=== PATIENT | male | born 1960 | race Caucasian/White ===

== ENCOUNTER 2024-08-15 07:33 | Inpatient (IN) ==
--- NOTE | 2024-07-13 09:45 | PAT Medication Instructions ---
Medication Instructions Date of Service July 13, 2024 Home Medications aspirin 81 mg tablet,delayed release 81 mg PO QAM carvedilol 25 mg tablet 25 mg PO BID celecoxib 200 mg capsule 200 mg PO DAILY PRN cyclobenzaprine 10 mg tablet 10 mg PO BID PRN diclofenac sodium 1 % topical gel 2 g topical DAILY PRN duloxetine 60 mg capsule,delayed release 60 mg PO QAM hydrocodone 5 mg-acetaminophen 325 mg tablet 1 tab PO TID PRN insulin aspart U-100 100 unit/mL (3 mL) subcutaneous pen (Novolog FlexPen U-100 Insulin aspart) 12 unit subcut TID insulin glargine 100 unit/mL (3 mL) subcutaneous pen (Lantus Solostar U-100 Insulin) 40 unit subcut QAM isosorbide mononitrate 60 mg tablet,extended release 24 hr 60 mg PO QAM lidocaine 5 % topical patch 1 patch topical QAM lisinopril 40 mg tablet 40 mg PO QAM methyl salicylate 10 % topical cream 1 applic topical DAILY PRN rosuvastatin 40 mg tablet 20 mg PO HS semaglutide 2 mg/dose (8 mg/3 mL) subcutaneous pen injector (Ozempic) 2 mg subcut WK sennosides 8.6 mg tablet (Senokot) 8.6 mg PO HS STOP 7 days before surgery semaglutide 2 mg/dose (8 mg/3 mL) subcutaneous pen injector (Ozempic) 2 mg subcut WK ASK your surgeon for instructions celecoxib 200 mg capsule 200 mg PO DAILY PRN ASK your prescriber and surgeon aspirin 81 mg tablet,delayed release 81 mg PO QAM lidocaine 5 % topical patch 1 patch topical QAM STOP taking 24 hours before surgery diclofenac sodium 1 % topical gel 2 g topical DAILY PRN methyl salicylate 10 % topical cream 1 applic topical DAILY PRN DO NOT take the morning of surgery lisinopril 40 mg tablet 40 mg PO QAM insulin aspart U-100 100 unit/mL (3 mL) subcutaneous pen (Novolog FlexPen U-100 Insulin aspart) 12 unit subcut TID Take morning of surgery With a small sip of water, OTHERWISE NOTHING TO EAT OR DRINK AFTER MIDNIGHT: carvedilol 25 mg tablet 25 mg PO BID cyclobenzaprine 10 mg tablet 10 mg PO BID PRN(if needed) duloxetine 60 mg capsule,delayed release 60 mg PO QAM hydrocodone 5 mg-acetaminophen 325 mg tablet 1 tab PO TID PRN(if needed) isosorbide mononitrate 60 mg tablet,extended release 24 hr 60 mg PO QAM Take evening before surgery carvedilol 25 mg tablet 25 mg PO BID cyclobenzaprine 10 mg tablet 10 mg PO BID PRN(if needed) hydrocodone 5 mg-acetaminophen 325 mg tablet 1 tab PO TID PRN(if needed) rosuvastatin 40 mg tablet 20 mg PO HS sennosides 8.6 mg tablet (Senokot) 8.6 mg PO HS insulin aspart U-100 100 unit/mL (3 mL) subcutaneous pen (Novolog FlexPen U-100 Insulin aspart) 12 unit subcut TID Insulin Dependent Diabetic Patients * Test your blood sugar the morning of surgery * If Blood Sugar is GREATER THAN 150, take HALF of your regular dose of: insulin glargine 100 unit/mL (3 mL) subcutaneous pen (Lantus Solostar U-100 Insulin). * If Blood Sugar is LESS THAN 150, DO NOT TAKE ANY: insulin glargine 100 unit/mL (3 mL) subcutaneous pen (Lantus Solostar U-100 Insulin). Other Notes If you have any questions please call us at [phone] or [phone] or [phone] or [phone]
--- NOTE | 2024-07-18 11:39 | Anesthesiology Consultation ---
Date of Service July 18, 2024 Assessment & Plan (1) Encounter for pre-operative examination: - Check BSG DOS - Infectious disease screening: Per assessment on 07/18/24- No known recent infectious disease contacts or current infectious disease symptoms. - Semaglutide instructions: Patient informed by PAT to stop 7 days prior to surgery- voiced understanding. DOS 08/15/24. Advised last dose to be 08/08/24. - PCP visit (06/13/24): "..feels sugars have been out of control recently due to pain and stress.. Pre-op: Since patient's last LHC in 09/2022, patient has great exercise tolerance of > 4 METS.. Per-operative Risk score is 0.3% using ASA III.. patient is cleared for surgery from internal medicine standpoint. I do not htink he needs any additional testing prior to surgery." - Cardiology note (07/01/24): "Low to moderate risk.. Do not recommend aspirin interruption due to PMH of in-stent restenosis. If interruption is absolutely necessary recommend holding for shortest time possible." - Uncontrolled diabetes: Preop labs performed 07/18/24 note elevated hgba1c at 10.0%. Email sent to surgeon office to make them aware- awaiting response. Chart Review Chart Review: Patient seen in Pre Admission Testing Teaching & Discussion Pre-Anesthesia Teaching/Discussion Notes: Instructed NPO after midnight before surgery,except medications with 15 cc of water. Medication instructions provided according to the PAT guidelines. History Surgery Operation Date: 08/15/24 10:35 Proposed Procedures p L3-L4, L4-L5 Decompression and Fusion with Spinal Cord Monitoring - Dylon Higuera, Height/Weight Height: 5 ft 8 in Weight: 106 kg Allergies Allergy/AdvReac Type Severity Reaction Status Date / Time amlodipine Allergy Severe Facial Verified 07/04/24 10:47 Swelling niacin AdvReac Severe Redness, Verified 07/04/24 10:47 Flushing pregabalin AdvReac Severe Nightmares Verified 07/04/24 10:47 metformin AdvReac Intermediate Diarrhea Verified 07/04/24 10:47 [id number] Reductase AdvReac Intermediate Muscle Pain Verified 07/04/24 10:47 Inhibitor Medications Home Medications Medication Instructions Recorded Confirmed Last Taken aspirin 81 mg tablet,delayed 81 mg PO QAM 07/04/24 07/04/24 Unknown release carvedilol 25 mg tablet 25 mg PO BID 07/04/24 07/04/24 Unknown celecoxib 200 mg capsule 200 mg PO DAILY PRN Pain 07/04/24 07/04/24 Unknown cyclobenzaprine 10 mg tablet 10 mg PO BID PRN Muscle Pain 07/04/24 07/04/24 Unknown diclofenac sodium 1 % topical gel 2 g topical DAILY PRN Muscle Pain 07/04/24 07/04/24 Unknown duloxetine 60 mg capsule,delayed 60 mg PO QAM Pain 07/04/24 07/04/24 Unknown release hydrocodone 5 mg-acetaminophen 325 1 tab PO TID PRN Pain 07/04/24 07/04/24 Unknown mg tablet insulin aspart U-100 100 unit/mL 12 unit subcut TID 07/04/24 07/04/24 Unknown (3 mL) subcutaneous pen (Novolog FlexPen U-100 Insulin aspart) insulin glargine 100 unit/mL (3 40 unit subcut QAM 07/04/24 07/04/24 Unknown mL) subcutaneous pen (Lantus Solostar U-100 Insulin) isosorbide mononitrate 60 mg 60 mg PO QAM 07/04/24 07/04/24 Unknown tablet,extended release 24 hr lidocaine 5 % topical patch 1 patch topical QAM 07/04/24 07/04/24 Unknown lisinopril 40 mg tablet 40 mg PO QAM 07/04/24 07/04/24 Unknown methyl salicylate 10 % topical 1 applic topical DAILY PRN Pain 07/04/24 07/04/24 Unknown cream rosuvastatin 40 mg tablet 20 mg PO HS 07/04/24 07/04/24 Unknown semaglutide 2 mg/dose (8 mg/3 mL) 2 mg subcut WK 07/04/24 07/04/24 07/04/24 subcutaneous pen injector (Ozempic) sennosides 8.6 mg tablet (Senokot) 8.6 mg PO HS 07/04/24 07/04/24 Unknown Past Medical History Medical History CAD (coronary artery disease) 2009 + 2018 + 08/2022 > total of 10 stents placed Follows [facility] Cardiology Diabetes mellitus, type 2 IDDM Heartburn Hx of myocardial infarction 2018 > total of 10 stents placed Follows [facility] Cardiology Hypertension Lumbar radiculopathy Sleep apnea CPAP (compliant) Exercise / Class Metabolic Activity II 4-5 Yardwork/Stairs/Walk up hill (one FS: No CP, no SOB) Past Surgical History Surgical History History of arthroscopy of right shoulder (10/2023) rotator cuff repair Hx of cardiac catheterization 2009 + 2018 + 08/2022> total of 10 stents placed Hx of colonoscopy Past Anesthesia History No Hx of Anesthesia Complications and No Family Hx of Anesthesia Complications History of PONV No Hx of PONV and No Hx of Motion Sickness Social History Smoking Status: Never smoker Do You Dip or Chew Tobacco: No Hx Alcohol Use: Yes Alcohol type: beer alcohol intake frequency: a few times a month Hx Substance Use: No substance use type: does not use Review of Systems Patient denies chest pain, shortness of breath, dyspnea on exertion, fever, chills, cough, wheezing. Physical Exam Vital Signs BP 129/83 P 60 TEMP 98.0 SP02 95%RA RESP 16 Physical Full cervical extension range of motion. Full TMJ range of motion. TMD > 3.5 finger breaths Mallampati Score II Dentition: lower partial Lungs: clear throughout to auscultation Cardiac: regular rate and rhythm, no murmurs noted Spine: normal Carotid arteries: negative bruit Extremities: no LE edema Short leonardo- patient states he will shave/trim prior to surgery Lab Results Anesthesia Preop Results Results Anesthesia Widget: WBC 10.13 K/ul (4.8-10.8) 07/18/24 Hgb 14.3 g/dl (14.0-18.0) 07/18/24 Hct 42.9 % (42.0-52.0) 07/18/24 Plt 246 K/uL (130-400) 07/18/24 Na 136 mmol/L (136-145) 07/18/24 K 4.6 mmol/L (3.5-5.1) 07/18/24 Cl 100 mmol/L (98-107) 07/18/24 CO2 31 mmol/L (21-32) 07/18/24 BUN 13 mg/dl (6-23) 07/18/24 Creat 0.84 mg/dl (0.6-1.4) 07/18/24 Glucose Level 253 mg/dl (70-99(Fasting)) H 07/18/24 PT 10.7 Seconds (9.0-12.0) 07/18/24 PTT 27 Seconds (21-31) 07/18/24 INR 1.0 (0.9-1.1) 07/18/24 HA1c 10.0 % (4.5-5.6) H 07/18/24 Urine Color Yellow 07/18/24 Urine Appearance Clear (Clear) 07/18/24 Urine pH 5.5 (4.5-7.5) 07/18/24 Urine Specific [place] 1.025 (1.000-1.030) 07/18/24 Urine Protein Negative (Negative) 07/18/24 Urine Glucose (UA) 2+ (Negative) H 07/18/24 Urine Ketones Trace (Negative) H 07/18/24 Urine Blood Negative (Negative) 07/18/24 Urine Nitrite Negative (Negative) 07/18/24 Urine Bilirubin Negative (Negative) 07/18/24 Urine Urobilinogen Negative (Negative) 07/18/24 Urine Leukocyte Esterase Negative (Negative) 07/18/24 Blood Type O Negative 07/18/24 Antibody Screen NEGATIVE 07/18/24 Testing Electrocardiogram Date: 07/18/24 NSR at 67bpm. RSR' or QR in V1 suggests RVCD. Chest X-Ray Date: 07/18/24 FINDINGS: Heart size and pulmonary vasculature are normal. No effusion or consolidation. IMPRESSION: No acute findings Echocardiogram Date: 03/18/24 EF 55 to 60%. Wall motion normal. Mild concentric LVH. Trivial MR/TR/FL. Stress Test Date: 08/20/22 Moderate lateral wall myocardial ischemia. LVEF 50%. Subsequent cardiac cath performed 09/09/2022. Cardiac Catheterization Date: 09/09/22 Multivessel CAD. Obstructive disease of the LAD status post PCI and stenting with overlapping JULIUS. Obstructive disease of the OM1 status post PCI with JULIUS. Normal left-sided filling pressure. No aortic stenosis. Residual moderate to severe diseasestent restenosis of the RCA.
[~2024-08-15 07:33] MED LIST: DEXAMETHASONE SOD INJ 4 MG/ML VIAL ONE; GLYCOPYRROLATE 0.2 MG/ML VIAL ONE; LIDOCAINE 2% 2 ML VIAL/AMP(20MG/ML) INFIL ONE; MIDAZOLAM HCL 1 MG/ML 2ML VIAL ONE; ONDANSETRON INJ 2 MG/ML 2 ML VIAL ONE; PROPOFOL IV EMULSION 10 MG/ML 20 ML VIAL IV ONE; ROCURONIUM BROMIDE 10 MG/ML 5 ML VIAL IV ONE; SUGAMMADEX SODIUM 200 MG/2 ML VIAL IV ONE; fentaNYL citrate PF 100 MCG/2 ML VIAL ONE
[2024-08-15] MEDS: LR 15ML/HR IV SCH (08:40)
[2024-08-15] MEDS: LR 60ML/HR IV SCH (08:45)
[2024-08-15] MEDS: ACETAMINOPHEN 500 MG TAB PO SCH (08:45)
[2024-08-15] MEDS: GABAPENTIN 300 MG CAP PO SCH (08:45)
[2024-08-15] MEDS: CeleBREX 200 MG CAP PO SCH (08:46)
--- NOTE | 2024-08-15 08:53 | History & Physical Bridge Note ---
Date of Service August 15, 2024 History & Physical Bridge Note I have examined the patient, reviewed the History & Physical and in the interval since the performance of the History & Physical I have noted the following changes of clinical significance: no changes noted
--- NOTE | 2024-08-15 08:54 | History & Physical Report ---
Date of Service August 15, 2024 Assessment & Plan (1) Two-level lumbosacral spondylosis with radiculopathy: Plan: Decompression and fusion L3-L4 L4-L5 History of Present Illness Chief Complaint: Back and leg pain Primary Care Provider: [facility] This is a 64-year-old male who presents chronic persistent back and leg pain Course of nonoperative care is here for surgical invention. Allergies Allergy/AdvReac Type Severity Reaction Status Date / Time amlodipine Allergy Severe Facial Verified 08/15/24 08:14 Swelling niacin AdvReac Severe Redness, Verified 08/15/24 08:14 Flushing pregabalin AdvReac Severe Nightmares Verified 08/15/24 08:14 metformin AdvReac Intermediate Diarrhea Verified 08/15/24 08:14 [id number]-DmV Reductase AdvReac Intermediate Muscle Pain Verified 08/15/24 08:14 Inhibitor Home Medications Medication Instructions Recorded Confirmed Type aspirin 81 mg tablet,delayed 81 mg PO QAM 07/04/24 08/15/24 History release carvedilol 25 mg tablet 25 mg PO BID 07/04/24 08/15/24 History celecoxib 200 mg capsule 200 mg PO DAILY PRN Pain 07/04/24 08/15/24 History cyclobenzaprine 10 mg tablet 10 mg PO BID PRN Muscle Pain 07/04/24 08/15/24 History diclofenac sodium 1 % topical gel 2 g topical DAILY PRN Muscle Pain 07/04/24 08/15/24 History duloxetine 60 mg capsule,delayed 60 mg PO QAM Pain 07/04/24 08/15/24 History release (Cymbalta) hydrocodone 5 mg-acetaminophen 325 1 tab PO TID PRN Pain 07/04/24 08/15/24 History mg tablet insulin aspart U-100 100 unit/mL 12 unit subcut TID 07/04/24 08/15/24 History (3 mL) subcutaneous pen (Novolog FlexPen U-100 Insulin aspart) insulin glargine 100 unit/mL (3 40 unit subcut QAM 07/04/24 08/15/24 History mL) subcutaneous pen (Lantus Solostar U-100 Insulin) isosorbide mononitrate 60 mg 60 mg PO QAM 07/04/24 08/15/24 History tablet,extended release 24 hr lidocaine 5 % topical patch 1 patch topical QAM 07/04/24 08/15/24 History lisinopril 40 mg tablet 40 mg PO QAM 07/04/24 08/15/24 History methyl salicylate 10 % topical 1 applic topical DAILY PRN Pain 07/04/24 08/15/24 History cream (Methylten) rosuvastatin 40 mg tablet 20 mg PO HS 07/04/24 08/15/24 History semaglutide 2 mg/dose (8 mg/3 mL) 2 mg subcut WK 07/04/24 08/15/24 History subcutaneous pen injector (Ozempic) sennosides 8.6 mg tablet (Senokot) 8.6 mg PO HS 07/04/24 08/15/24 History Past Med/Surg History Problem List (Updated 08/15/24 @ 08:54 by Dylon Higuera, DO) Two-level lumbosacral spondylosis with radiculopathy Encounter for pre-operative examination Medical History CAD (coronary artery disease) 2009 + 08/2022 > total of 10 stents placed Follows [facility] Cardiology Diabetes mellitus, type 2 IDDM Heartburn Hx of myocardial infarction 2018 > total of 10 stents placed Follows [facility] Hypertension Lumbar radiculopathy Sleep apnea CPAP (compliant) Surgical History History of arthroscopy of right shoulder (10/2023) rotator cuff repair Hx of cardiac catheterization 2009 + 08/2022> total of 10 stents placed Hx of colonoscopy Social History Smoking Status: Never smoker Second Hand Exposure: No; Do You Dip or Chew Tobacco: No; Tobacco Cessation Education Requested by Patient: No Hx Alcohol Use: Yes Alcohol type: beer Hx Substance Use: No Preferred Language: Tajik Communication Ability: Effective Denture Contour Wire Specialist Required: No Beliefs That Will Affect Care: None Current Living Situation: Alone Other Information That Helps Us Care for You: No Feels Safe at Home: Yes Safety Concerns: Feels Safe At This Time Assistive Devices: CPAP, Glasses and Other Assistive Devices Comment: Lower Partial Physical Exam Physical Exam: Patient is alert and oriented Heart regular rhythm Lungs clear Results & Data Results & Data Vital Signs (Past 12 Hours) Vital Signs Temp Pulse Resp BP Pulse Ox O2 Del Method 08/15/24 08:22 36.6 C 71 20 155/91 H 96 Room Air
[2024-08-15] MEDS ORDERED: LANTUS PER UNIT CHARGE SQ STA (08:56)
[2024-08-15] MEDS ORDERED: ePHEDrine sulfate 50 MG/ML AMP IV PRN (09:01)
[2024-08-15] MEDS ORDERED: PROMETHAZINE HCL 6.25 MG in SODIUM CHLORIDE 0.9% 50 ML IV PRN (09:01)
[2024-08-15] MEDS ORDERED: ATROPINE SULFATE 0.1 MG/ML 10ML SYR IV PRN (09:01)
[2024-08-15] MEDS: LANTUS PER UNIT CHARGE SQ STA (09:21)
[2024-08-15] MEDS: ceFAZolin 2000MG 2,000 MG/15 ML SYR IV SCH ×2 (09:26→20:56)
[2024-08-15] MEDS: BUPIVACAINE/EPINEPHRINE 0.25% 1:200,000 30 ML VIAL ONE (09:53)
[2024-08-15] MEDS ORDERED: fentaNYL citrate PF 100 MCG/2 ML VIAL ONE ×2 (10:13→11:32)
[2024-08-15] MEDS: ceFAZolin 330 MG/ML 1 GM VIAL ONE (11:29)
[2024-08-15] MEDS: FLOSEAL HEMOSTATIC MATRIX 10ML TOP SCH (11:31)
--- NOTE | 2024-08-15 11:38 | Fluoroscopy Report ---
FL lumbar spine 2-3V CLINICAL HISTORY: L3-L5 DECOMPRESSION AND FUSION WITH INTERBODY COMPARISON STUDY: None FLUOROSCOPY TIME: 20 seconds FLUOROSCOPY IMAGES: 2 EXPOSURE DOSE: 18.2 mGy FINDINGS: Fluoroscopy was provided for lumbar metallic fusion. IMPRESSION: Intraoperative fluoroscopy. ACT 112: Negative or not required by law. Electronically signed by: Dustin Paez M.D. 08/15/2024 11:37 AM
--- NOTE | 2024-08-15 11:42 | Operative Report ---
Post Operative Report Pre & Post Diagnosis Operation Date: 08/15/24 09:15 Pre-Op Diagnosis: #1 two-level lumbosacral spondylosis with radiculopathy #2 lumbar spondylolisthesis with radiculopathy #3 lumbar spinal stenosis Post-Op Diagnosis: Same I identified the patient and participated in the time-out.: Yes Procedure Operation Date: 08/15/24 09:15 Actual Procedures #1 lumbar decompression bilaterally facetectomies and foraminotomies L2-L3, L3- L4 L4-5 per #2 posterior spinal fusion L3-L5. #3 placed posterior instrumentation using Page rods and screws L3-L5. #4 interbody fusion L3-L4 L4-5. #5 placement Spira 14 x 26 mm at L3-L4 and 15 x 26 mm at L4-5. #6 placement locally harvested morselized autograft in the posterior gutters per #7 placement infuse collagen sponge combined with Koros in the posterior lateral gutters and os design interbody space. #8 application of versa wrap over the exposed dura. Surgeon Dylon Higuera, DO Production Shift Supervisor Karis Banks Estimated Blood Loss 500 Findings See Below Patient is 5 foot 8 weighing over 106 kg with a BMI in excess of 35. The patient's body was did contribute to significant technical difficulty with positioning exposure and the procedure itself. This added at least 50% increased operative time. Specimens None Indications This is a 64-year-old male presents publish diagnosis of failing course of nonoperative care is here for surgical invention. Description of Procedure Patient was met with identified informed consent obtained. Patient was then taken to the operative suite underwent intubation placed in a prone position on the Juan Jose table atop the Santino frame. All bony prominences well-padded eyes inspected to ensure no external pressure placed upon them. This point the lumbar spine was prepped and draped in normal sterile fashion. Sharp dissection with the assistance of Bovie Bovie cautery was performed down to and exposing the lamina and transverse processes of L3 L4-5 bilaterally. For caudal assessment fashion complete laminectomy of L3-4 was performed including bilat eral medial facetectomies and foraminotomies addressing severe subarticular and foraminal stenosis. This followed by complete laminectomy of L3 with complete medial facetectomies and foraminotomies addressing severe spinal stenosis and lastly partial laminectomy of L2 with bilateral medial facetectomies to address all subarticular stenosis. Pedicle screws were then placed in L3-L4-L5 bilaterally with assistance of fluoroscopy in the process ra contoured and placed. By way of transforaminal approach and right discectomy of L4-L5 was performed endplates guided to subcortical mean bone and a 15 x 26 mm Spira cage filled with os design bone graft tapped in position. Then proceeded to the left transforaminal region at L4-5. Again discectomy performed. Endplates guided to subcortical mean bone and a second 15 x 26 mm spiral cage filled with os design bone graft tapped in position. Then proceeded L3-L4 by way of transfer approach on the left discectomy was performed. Endplates guided to subcortical bleeding bone and a 14 x 26 mm spiral cage filled with os designed tapped into position. Then proceeded to the right transforaminal region at L3-L4. Again discectomy performed. Endplates guided to subcortical main bone and a second 14 x 26 mm Spira cage filled with os design tapped in position. The rods were then compressed locked in a final position bilaterally. The transverse processes of L3 L4-5 burred to subcortical bleeding bone. Infuse collagen sponge, with Koros and local autograft placed in the posterior gutters. Versa wrap placed with exposed dura. 15 round SHWETA drain inserted. The incision was then closed with 1 Vicryl the fascia 2-0 Vicryl subcutaneously and 4 Monocryl for final skin closure. Steri-Strips and sterile dressing placed. Patient waken taken PACU stable condition. Please note spinal cord monitoring was utilized at the procedure no changes noted. Karis Banks was present at the entire procedure and all the patient positioning complex portion of the surgery and final skin closure. I attest to the content of the Intraoperative Record and any orders documented therein. Any exceptions are noted below.
[2024-08-15] MEDS: HYDROmorphone INJ 2 MG/ML SYR/VIAL IV PRN (12:53)
[2024-08-15] MEDS ORDERED: hydrOXYzine HCl 25 MG TAB PO PRN (13:14)
[2024-08-15] MEDS ORDERED: traMADol HCL 50 MG TABLET PO PRN (13:14)
[2024-08-15] MEDS ORDERED: diphenhydrAMINE Capsule 25 MG CAP PO PRN (13:14)
[2024-08-15] MEDS ORDERED: METOCLOPRAMIDE HCL INJ 5 MG/ML 2 ML VIAL IV PRN (13:14)
[2024-08-15] MEDS ORDERED: PROMETHAZINE 12.5 MG/50.5 ML BAG IV PRN (13:14)
[2024-08-15] MEDS ORDERED: PHARMACY GLYCEMIC MGMT CONSULT PRN (13:14)
[2024-08-15] MEDS ORDERED: DO NOT ADMINISTER PNEUMOCOCCAL VACCINE PRN (13:14)
[2024-08-15] MEDS ORDERED: FAMOTIDINE 20 MG TAB PO PRN (13:14)
[2024-08-15] MEDS ORDERED: ALUMINUM/MAGNESIUM SUSP 30 ML UDC PO PRN (13:14)
[2024-08-15] MEDS ORDERED: MAGNESIUM HYDROXIDE SUSP 30 ML UDC PO PRN (13:14)
[2024-08-15] MEDS ORDERED: HYDROmorphone INJ 1 MG/ML SYRINGE IV PRN (13:14)
[2024-08-15] MEDS ORDERED: bisacodyL 10 MG SUPP PR PRN (13:14)
[2024-08-15] MEDS ORDERED: DO NOT ADMINISTER FLU VACCINE PRN (13:14)
[2024-08-15] MEDS ORDERED: SOD PHOSPHATE/SOD BIPHOSPHATE ENEMA 132 ML BTL PR PRN (13:14)
[2024-08-15] MEDS ORDERED: ACETAMINOPHEN 1,000 MG/100 ML VIAL IV PRN (13:14)
[2024-08-15] MEDS ORDERED: LORazepam 0.5 MG TAB PO PRN (13:14)
[2024-08-15] MEDS ORDERED: ONDANSETRON 4 MG OD TAB PO PRN (13:14)
[2024-08-15] MEDS ORDERED: NALOXONE HCL 0.4 MG/1 ML VIAL/CARP IV PRN (13:14)
[2024-08-15] MEDS ORDERED: ACETAMINOPHEN 500 MG TAB PO PRN (13:14)
[2024-08-15] MEDS ORDERED: LORazepam 2 MG/1 ML VIAL IV PRN (13:14)
[2024-08-15] MEDS ORDERED: ONDANSETRON INJ 2 MG/ML 2 ML VIAL IV PRN (13:14)
[2024-08-15] MEDS ORDERED: DEXTROSE 50% 50 ML SYRINGE IV PRN (14:15)
[2024-08-15] MEDS ORDERED: CARBOHYDRATES FOR HYPOGLYCEMIA PO PRN (14:15)
[2024-08-15] MEDS ORDERED: GLUCOSE 40% GEL 15 GM TUBE PO PRN (14:15)
[2024-08-15] MEDS ORDERED: GLUCAGON FOR INJ 1 MG VIAL SQ PRN (14:15)
[2024-08-15] MEDS ORDERED: GLUCOSE 10 TAB/TUBE PO PRN (14:15)
[2024-08-15] MEDS: oxyCODONE HCL IR 5 MG TAB (IMMEDIATE RELEASE) PO PRN (14:15)
--- NOTE | 2024-08-15 14:20 | Pharmacy Report ---
Pharmacy Glycemic Short Note 2 - Date of Service August 15, 2024 - Glycemic Short BSG Results (Last 24 hours): 08/15/24 08/15/24 08/15/24 08:05 08:06 08:50 POC Glucose 276 H 215 H 210 H 08/15/24 08/15/24 11:56 13:53 POC Glucose 231 H 289 H OUTPATIENT ANTIDIABETIC REGIMEN: * Lantus 40 units qam * Ozempic 2mg weekly (last dose was on 08/08/24) * NovoLog 12 units TID ASSESSMENT: A 64-years old male with DM type 2 is admitted after a lumbosacral spondylosis. patient has received iv dexamethasone 8 mg preop and now he is on ongoing iv dexamethasone 6mg daily. post op day zero. PLAN FOR INPATIENT GLYCEMIC CONTROL: * Hold outpatient oral diabetes medications * Basal insulin * Lantus 25 units SQ one time dose, and 10 units of Lantus was given to the patient preop. * Bolus insulin * NovoLog per scale ACHS or Q6hrs while NPO * Goal Range: Low 110 mg/dL - High 140 mg/dL * Correction Factor: 20 mg/dL/unit * Nutritional / Prandial insulin per carb ratio of 1 unit per 5 grams CHO consumed
--- NOTE | 2024-08-15 14:51 | Hospitalist Consultation ---
<Statement entered by Josh Grande, - 08/15/24 17:16> I have seen and examined the patient and have discussed the case with the advance practice provider. I have reviewed the advanced practitioner's documentation, and I agree with, and take responsibility for that plan of care. Patient tolerated his liquid lunch, reports that his pain is really well- controlled at this time. Eager to get up and moving. Reviewed plan of care as outlined below I spent a total of 10 minutes coordinating, documenting, and providing care for this patient excluding time spent by another provider/QHP. Date of Consultation August 15, 2024 Assessment & Plan (1) Two-level lumbosacral spondylosis with radiculopathy: This is a 64 y/o male with CAD s/p stent x 2 with repeat procedure in 2022 for in-stent stenosis, prior [place], JHONY on CPAP, DM2 with retinopathy, HTN, dyslipidemia, and other history as outlined below who underwent L3-L5 decompression and fusion today by Dr. Higuera and for whom we have been consulted to assist with post-operative medical management. Currently, patient is stable and doing well post-operatively. EBL = 500 ml. Outpatient records from the [place] were reviewed to determine pt's medical history and pre-operative risk assessment. - Pain control, activity, DVT prophylaxis per primary team - CBC, BMP in the AM - monitor for post-op blood loss anemia - Encourage incentive spirometry, activity once okay with primary team (2) Sleep apnea: Chronic, stable - pt brought CPAP from home Order placed for pt to use own CPAP machine at (3) Diabetes mellitus, type 2: Chronic, stable Glycemic pharmacy consult noted and appreciated Continue to monitor (4) CAD (coronary artery disease): Chronic, stable without anginal symptoms at present Continue home medications (5) Hypertension: Chronic, stable Continue home medications Continue to monitor closely post-op Plan Pt seen and reviewed with collaborating physician, Dr. Grande. Plan of care discussed and as outlined above. Thank you for this consultation. We will continue to follow this patient with you. [facility] via [facility]. Please don't hesitate to reach out with questions. Yeni Barrera PA-C History of Present Illness Reason for Consultation: Post-operative medical management Requesting Physician: Dr. Dylon Higuera Attending Physician: Dylon Higuera, DO History of Present Illness This is a 64 y/o male with CAD s/p stent x 2 with repeat procedure in 2022 for in-stent stenosis, prior [place], JHONY on CPAP, DM2 with retinopathy, HTN, dyslipidemia, and other history as outlined below who underwent L3-L5 decompression and fusion today by Dr. Higuera and for whom we have been consulted to assist with post-operative medical management. Pt is seen post-operatively on the floor and reports that he is overall feeling well. He has some post- operative pain but reports it is dull and localized to the operative site, which is in contrast to his prior pain which was sharp and radiated to LE. He is tolerating clear liquids without nausea or vomiting. He denies chest pain, dyspnea, palpitations, dizziness, GTZ. He does uses CPAP at night sleep apnea, which he has brought with him to the hospital. He reports his blood sugars have been stable at home, typically under 200. Allergies Allergy/AdvReac Type Severity Reaction Status Date / Time amlodipine Allergy Severe Facial Verified 08/15/24 08:14 Swelling niacin AdvReac Severe Redness, Verified 08/15/24 08:14 Flushing pregabalin AdvReac Severe Nightmares Verified 08/15/24 08:14 metformin AdvReac Intermediate Diarrhea Verified 08/15/24 08:14 Ut[place]je-JSJ-EnM Reductase AdvReac Intermediate Muscle Pain Verified 08/15/24 08:14 Inhibitor Home Medications Medication Instructions Recorded Confirmed Type aspirin 81 mg tablet,delayed 81 mg PO QAM 07/04/24 08/15/24 History release carvedilol 25 mg tablet 25 mg PO BID 07/04/24 08/15/24 History celecoxib 200 mg capsule 200 mg PO DAILY PRN Pain 07/04/24 08/15/24 History cyclobenzaprine 10 mg tablet 10 mg PO BID PRN Muscle Pain 07/04/24 08/15/24 History diclofenac sodium 1 % topical gel 2 g topical DAILY PRN Muscle Pain 07/04/24 08/15/24 History duloxetine 60 mg capsule,delayed 60 mg PO QAM Pain 07/04/24 08/15/24 History release (Cymbalta) hydrocodone 5 mg-acetaminophen 325 1 tab PO TID PRN Pain 07/04/24 08/15/24 History mg tablet insulin aspart U-100 100 unit/mL 12 unit subcut TID 07/04/24 08/15/24 History (3 mL) subcutaneous pen (Novolog FlexPen U-100 Insulin aspart) insulin glargine 100 unit/mL (3 40 unit subcut QAM 07/04/24 08/15/24 History mL) subcutaneous pen (Lantus Solostar U-100 Insulin) isosorbide mononitrate 60 mg 60 mg PO QAM 07/04/24 08/15/24 History tablet,extended release 24 hr lidocaine 5 % topical patch 1 patch topical QAM 07/04/24 08/15/24 History lisinopril 40 mg tablet 40 mg PO QAM 07/04/24 08/15/24 History methyl salicylate 10 % topical 1 applic topical DAILY PRN Pain 07/04/24 08/15/24 History cream (Methylten) rosuvastatin 40 mg tablet 20 mg PO HS 07/04/24 08/15/24 History semaglutide 2 mg/dose (8 mg/3 mL) 2 mg subcut WK 07/04/24 08/15/24 History subcutaneous pen injector (Ozempic) sennosides 8.6 mg tablet (Senokot) 8.6 mg PO HS 07/04/24 08/15/24 History oxycodone 5 mg tablet 5 mg PO Q6H PRN pain #30 tabs 08/15/24 Rx tramadol 50 mg tablet 50 mg PO Q6H PRN pain, moderate 08/15/24 Rx #30 tabs Patient History Medical History CAD (coronary artery disease) 2009 + 08/2022 > total of 10 stents placed Follows [facility] Heartburn Lumbar radiculopathy Hypertension Hx of myocardial infarction 2018 > total of 10 stents placed Follows [facility] Sleep apnea CPAP (compliant) Diabetes mellitus, type 2 IDDM Surgical History History of arthroscopy of right shoulder (10/2023) rotator cuff repair Hx of colonoscopy Hx of cardiac catheterization 2009 + 08/2022> total of 10 stents placed Social History Smoking Status: Never smoker Second Hand Exposure: No; Do You Dip or Chew Tobacco: No; Tobacco Cessation Education Requested by Patient: No Hx Alcohol Use: Yes Alcohol type: beer Hx Substance Use: No Preferred Language: Bahamian Communication Ability: Effective Zyglo Technician Required: No Beliefs That Will Affect Care: None Current Living Situation: Alone Other Information That Helps Us Care for You: No Feels Safe at Home: Yes Safety Concerns: Feels Safe At This Time Assistive Devices: CPAP, Glasses and Other Assistive Devices Comment: Lower Partial Review of Systems Review of Systems: All systems reviewed & are unremarkable except as noted in Subjective Physical Exam Physical Exam: General: awake, alert, NAD HEENT: no scleral icterus, moist oral mucosa Neck: supple, trachea midline Heart: RRR with occasional ectopy Lungs: CTA bilaterally on the anterior Abdomen: soft, +BS Extremities: distal pulses intact and equal, no pedal edema Neurologic: moving all extremities, no focal deficits, no confusion or dysarthria. Skin: warm, dry, no jaundice or cyanosis Results & Data Results & Data Vital Signs (Past 12 Hours) Vital Signs Temp Pulse Pulse Resp BP Pulse Ox O2 Del Method 08/15/24 14:15 76 16 145/67 H 93 Room Air 08/15/24 13:46 36.6 C 75 16 135/79 97 Room Air 08/15/24 13:15 36.3 C L 68 16 131/77 94 Room Air 08/15/24 12:57 67 12 116/78 93 Room Air 08/15/24 12:45 65 12 135/86 96 Room Air 08/15/24 12:30 36.4 C L 66 14 144/89 H 93 Room Air 08/15/24 12:20 70 12 132/83 96 Room Air 08/15/24 12:10 70 16 145/92 H 94 Oxymask 08/15/24 12:00 69 13 123/65 97 Oxymask 08/15/24 11:51 36.5 C 72 12 112/64 97 Oxymask 08/15/24 08:22 36.6 C 71 20 155/91 H 96 Room Air O2 Flow Rate 08/15/24 14:15 08/15/24 13:46 08/15/24 13:15 08/15/24 12:57 08/15/24 12:45 08/15/24 12:30 08/15/24 12:20 08/15/24 12:10 4 02/24/25 12:00 6 08/15/24 11:51 10 08/15/24 08:22 Laboratory Results 08/15/24 08/15/24 08/15/24 08:02 08:05 08:06 POC Glucose 276 H 215 H Blood Type O Negative Antibody Screen NEGATIVE Crossmatch See Detail 08/15/24 08/15/24 08/15/24 08:50 11:56 13:53 POC Glucose 210 H 231 H 289 H Blood Type Antibody Screen Crossmatch Medications Administered Acetaminophen (Acetaminophen 500 Mg Tab) 1,000 mg PO PREOP RONY Stop: 08/15/24 18:00 Last Admin: 08/15/24 08:45 Dose: 1,000 mg Documented By: TUSHAR Celecoxib (Celebrex 200 Mg Cap) 200 mg PO PREOP RONY Stop: 08/15/24 18:00 Last Admin: 08/15/24 08:46 Dose: 200 mg Documented By: TUSHAR Gabapentin (Gabapentin 300 Mg Cap) 300 mg PO PREOP RONY Stop: 08/15/24 18:00 Last Admin: 08/15/24 08:45 Dose: 300 mg Documented By: TUSHAR Hydromorphone HCl (Hydromorphone Inj 2 Mg/Ml Syr/Vial) 0.5 mg IV Q5M PRN PRN Reason: PACU Use Only-Pain Stop: 08/15/24 17:02 Last Admin: 08/15/24 12:53 Dose: 0.5 mg Documented By: YANA Lactated Ringer's (Lr) 1,000 mls @ 15 mls/hr IV .Q24H RONY Stop: 08/16/24 05:59 Last Infusion: 08/15/24 09:24 Dose: Infused Documented By: Admin: 08/15/24 08:40 Dose: 15 mls/hr Documented By: TUSHAR Lactated Ringer's (Lr) 1,000 mls @ 60 mls/hr IV .[id number] RONY Stop: 08/15/24 22:39 Last Admin: 08/15/24 08:45 Dose: Not Given Documented By: TUSHAR Cefazolin Sodium (Ancef 2000mg) 2,000 mg in 15 mls @ 3.75 mls/min IV PREOP ORNY; Protocol Stop: 08/15/24 18:00 Last Admin: 08/15/24 09:26 Dose: 3.75 mls/min Documented By: [id number] Miscellaneous ( Floseal Hemostatic Matrix 10ml) 30 ml TOP ONCE RONY Stop: 09/14/24 10:29 Last Admin: 08/15/24 11:31 Dose: 20 ml Documented By: GMGlen Oxycodone HCl (Oxycodone Hcl Ir 5 Mg Tab (Immediate Release)) 5 - 10 mg PO Q4H PRN PRN Reason: Pain & Pre PT Stop: 08/29/24 13:13 Last Admin: 08/15/24 14:15 Dose: 10 mg Documented By: GUICHO Discontinued Medications Bupivacaine HCl/Epinephrine Bitart (Bupivacaine/Epinephrine 0.25% 1:200,000 30 Ml Vial) Confirm Administered Dose 30 ml .ROUTE .STK-MED ONE Stop: 08/15/24 09:03 Last Admin: 08/15/24 09:53 Dose: 20 ml Documented By: GMGlen Cefazolin Sodium (Cefazolin 330 Mg/Ml 1 Gm Vial) Confirm Administered Dose 990 mg .ROUTE .STK-MED ONE Stop: 08/15/24 09:03 Last Admin: 08/15/24 11:29 Dose: 1,000 mg Documented By: GMB Insulin Glargine (Lantus Per Unit Charge) 10 units SQ NOW STA Stop: 08/15/24 09:14 Last Admin: 08/15/24 09:21 Dose: 10 units Documented By: TUSHAR Co-signed By: OSVALDO (2) Sleep apnea Sleep apnea type: obstructive Qualified Code(s): G47.33 - Obstructive sleep apnea (adult) (pediatric) (3) Diabetes mellitus, type 2 Diabetes mellitus complication detail: with diabetic retinopathy Diabetes mellitus complication status: with ophthalmic complications Diabetes mellitus senior living insulin use: with senior living use Diabetes mellitus macular edema: macular edema presence unspecified Diabetic retinopathy severity: with unspecified retinopathy severity Laterality: unspecified laterality Qualified Code(s): E11.319 - Type 2 diabetes mellitus with unspecified diabetic retinopathy without macular edema; Z79.4 - terminal operations manager (current) use of insulin (4) CAD (coronary artery disease) Associated angina: without angina Coronary Disease-Associated Artery/Lesion type: [place] artery [place] vs. transplanted heart: [place] heart Qualified Code(s): I25.10 - Atherosclerotic heart disease of [place] coronary artery wi thout angina pectoris (5) Hypertension Hypertension type: unspecified Qualified Code(s): I10 - Essential (primary) hypertension
[2024-08-15] MEDS: LANTUS PER UNIT CHARGE SC ONE (14:59)
[2024-08-15] MEDS ORDERED: LANTUS PER UNIT CHARGE SC SCH (15:00)
--- NOTE | 2024-08-15 15:09 | Anesthesiology Progress Note ---
Date of Service August 15, 2024 Anesthesia Post Procedure Vital Signs Vital Signs: Temp Pulse Pulse Resp BP Pulse Ox O2 Del Method 08/15/24 14:15 76 16 145/67 H 93 Room Air 08/15/24 13:46 36.6 C 75 16 135/79 97 Room Air 08/15/24 13:15 36.3 C L 68 16 131/77 94 Room Air 08/15/24 12:57 67 12 116/78 93 Room Air 08/15/24 12:45 65 12 135/86 96 Room Air 08/15/24 12:30 36.4 C L 66 14 144/89 H 93 Room Air 08/15/24 12:20 70 12 132/83 96 Room Air 08/15/24 12:10 70 16 145/92 H 94 Oxymask 08/15/24 12:00 69 13 123/65 97 Oxymask 08/15/24 11:51 36.5 C 72 12 112/64 97 Oxymask 08/15/24 08:22 36.6 C 71 20 155/91 H 96 Room Air O2 Flow Rate 08/15/24 14:15 08/15/24 13:46 08/15/24 13:15 08/15/24 12:57 08/15/24 12:45 08/15/24 12:30 08/15/24 12:20 08/15/24 12:10 4 08/15/24 12:00 6 08/15/24 11:51 10 08/15/24 08:22 Pain Intensity Lower Back: Pain Intensity: 8 Transfer of Care Handoff Completed per policy Notes Mental Status: alert / awake / arousable and participated in evaluation Nausea / Vomiting: adequately controlled Pain: adequately controlled Airway Patency, RR, SpO2: stable & adequate BP & HR: stable & adequate Hydration State: stable & adequate Anesthetic Complications: no major complications apparent and Pt Satisfied with anesthetic care
[2024-08-15] MEDS: HYDROmorphone INJ 0.5 MG/0.5 ML SYR IV PRN (16:32)
[2024-08-15] MEDS: carvediloL 25 MG TAB PO SCH (16:35)
[2024-08-15] MEDS: INSULIN ASPART PER UNIT CHARGE SC SCH (17:00)
[2024-08-15] MEDS: DOCUSATE SODIUM/SENNA 50/8.6MG TAB PO SCH (20:54)
[2024-08-15] MEDS: ROSUVASTATIN CALCIUM 20 MG TAB PO SCH (20:56)
[2024-08-15] MEDS ORDERED: Nursing to Pharmacy Communication SCH (23:15)
[2024-08-16] MEDS: POLYETHYLENE (MIRALAX) 17 GM PACK PO SCH (05:28)
[2024-08-16 06:20] LABS: BUN Creatinine Ratio 19.3 (10-20); Calcium 8.1 mg/dl (8.6-10.3); Creatinine Clr Calc Pharmacy 104.8 ml/min; Potassium 4.2 mmol/L (3.5-5.1)
[2024-08-16 06:31] LABS: Basophils # (auto) 0.02 K/uL (0.00-0.20); Basophils % (auto) 0.1 %; Hemoglobin 12.2 g/dl (14.0-18.0); Immature Granulocytes % (auto) 0.7 %; Lymphocytes % (auto) 9.2 %; Mean Corpuscular Hemoglobin 29.1 pg (25.0-34.0); Mean Corpuscular Hgb Conc 33.9 g/dL (32.0-36.0); Mean Corpuscular Volume 85.9 fL (80.0-100.0); Mean Platelet Volume 10.7 fL (9.4-12.4); Monocytes # (auto) 1.29 K/uL (0.11-0.59); Monocytes % (auto) 8.5 %; Neutrophils # (auto) 12.45 K/uL (1.40-6.50); Neutrophils % (auto) 81.5 %; Platelet Count 214 K/uL (130-400); RDW Coefficient of Variation 12.9 % (11.5-14.5); RDW Standard Deviation 40.3 fL (36.4-46.3); Red Blood Count 4.19 M/uL (4.70-6.10); White Blood Count 15.26 K/ul (4.8-10.8)
[2024-08-16] MEDS: LANTUS PER UNIT CHARGE SC SCH ×2 (08:29→20:54)
[2024-08-16] MEDS: dexAMETHasone 6 MG in SYRINGE 0 ML IV SCH (08:29)
[2024-08-16] MEDS: ISOSORBIDE MONO EXTENDED REL 60 MG TABCR PO SCH (08:30)
[2024-08-16] MEDS: ASPIRIN 81 MG ECTAB PO SCH (08:30)
[2024-08-16] MEDS: lisinopril 40 MG TAB PO SCH (08:30)
[2024-08-16] MEDS: DULoxetine HCL 60 MG CAP PO SCH (08:30)
--- NOTE | 2024-08-16 09:55 | Orthopedic Progress Note ---
Date of Service August 16, 2024 Assessment & Plan (1) Two-level lumbosacral spondylosis with radiculopathy: Plan: At this time we will continue physical therapy monitor his SHWETA operatively discharge home next few days. Admission and Anticipated Discharge Date Admission Date: August 15, 2024 Subjective Back pain controlled leg pain markedly improved Physical Exam Physical Exam: Patient is in the chair at bedside. He is comfortable. Distracted testing. Results & Data Vital Signs (Past 12 Hours) Vital Signs Temp Pulse Resp BP BP Pulse Ox O2 Del Method 08/16/24 07:52 36.8 C 88 16 138/80 93 Room Air 08/16/24 03:19 36.8 C 80 16 165/101 H 162/93 H 96 Room Air 08/15/24 22:28 36.9 C 95 H 18 108/75 94 Room Air 08/15/24 22:16 37.3 C 99 H 17 138/75 93 Room Air Queries Orthopedic Spine Obesity: Yes
--- NOTE | 2024-08-16 10:48 | Pharmacy Report ---
Pharmacy Glycemic Short Note 2 - Date of Service August 16, 2024 - Glycemic Short BSG Results (Last 24 hours): 08/15/24 08/15/24 08/15/24 11:56 13:53 16:32 Glucose POC Glucose 231 H 289 H 315 H* 08/15/24 08/15/24 08/16/24 16:33 20:49 05:36 Glucose 260 H POC Glucose 284 H 282 H 08/16/24 07:38 Glucose POC Glucose 238 H OUTPATIENT ANTIDIABETIC REGIMEN: * Lantus 40 units qam * Ozempic 2mg weekly (last dose was on 08/08/24) * NovoLog 12 units TID * A1c = 10% (07/18/24) ASSESSMENT: 08/16: * Sg is POD #1 s/p L3-L4, L4-L5 decompression and fusion. Ordered dexamethasone 6 mg IV daily post-op. * Persistent hyperglycemia over the past 24 hours likely d/t high dose IV steroids in addition to poorly controlled DM at baseline evidenced by A1c = 10%. * Fasting BSG of 238 mg/dL today. Patient is scheduled to receive 25 units of Lantus this AM. Will increase this to 50 units (25% increase compared to home of 40 units) and order a basal insulin scale for HS encase hyperglycemia continues throughout the day. * Tighten Novolog CF and CR. 08/15: A 64-years old male with DM type 2 is admitted after a lumbosacral spondylosis. patient has received iv dexamethasone 8 mg preop and now he is on ongoing iv dexamethasone 6mg daily. post op day zero. PLAN FOR INPATIENT GLYCEMIC CONTROL: * Hold outpatient oral diabetes medications * Basal insulin * Lantus 50 units SQ qAM * Lantus 0-10 units SQ qHS (10 units for BSG > 200 mg/dL) * Bolus insulin * NovoLog per scale ACHS or Q6hrs while NPO * Goal Range: Low 110 mg/dL - High 140 mg/dL * Correction Factor: 10 mg/dL/unit * Nutritional / Prandial insulin per carb ratio of 1 unit per 3 grams CHO consumed
--- NOTE | 2024-08-16 14:01 | Hospitalist Progress Note ---
Date of Service August 16, 2024 Assessment & Plan (1) Two-level lumbosacral spondylosis with radiculopathy: Plan: This is a 64 y/o male with CAD s/p stent x 2 with repeat procedure in 2022 for in-stent stenosis, prior [place], JHONY on CPAP, DM2 with retinopathy, HTN, dyslipidemia, and other history as outlined below who underwent L3-L5 decompression and fusion today by Dr. Higuera and for whom we have been consulted to assist with post-operative medical management. Currently, patient is stable and doing well post-operatively. EBL = 500 ml. Outpatient records from the [place] were reviewed to determine pt's medical history and pre-operative risk assessment. - Pain control, activity, DVT prophylaxis per primary team - CBC, BMP in the AM - monitor for post-op blood loss anemia - Encourage incentive spirometry, activity once okay with primary team (2) Sleep apnea: Plan: Chronic, stable - pt brought CPAP from home Order placed for pt to use own CPAP machine at (3) Diabetes mellitus, type 2: Plan: Chronic, stable -slightly elevated today Plan: -Glycemic pharmacy consult noted and appreciated -Continue to monitor (4) CAD (coronary artery disease): Plan: -Chronic, stable without anginal symptoms at present -Continue home medications (5) Hypertension: Plan: -Chronic, stable -Continue home medications -Continue to monitor closely post-op Plan Feeding/fluids: carb consistent Analgesia: per ortho Sedation: na Thromboprophylaxis: per ortho Head up position: na Ulcer prophylaxis: na Glycemic control: insulin protocol Spontaneous breathing trial: na Bowel care: miralax prn Indwelling catheter removal: na Deescalation of antibiotics: na I spent a total of 40 minutes in direct patient care, including [id number] time with the patient and/or family, reviewing medical records, ordering and reviewing diagnostic tests, and coordinating care with other healthcare providers. This time includes: history taking, physical examination, medical decision making, counseling, ECG interpretation, imaging interpretation, lab interpretation, orders, and education, excluding time spent in the performance of separately billed services. Admission and Anticipated Discharge Date Admission Date: August 15, 2024 Subjective Patient seen and examined at bedside. Patient doing well today. He states he has a little bit of discomfort around his wound site but otherwise doing well. Walking around without difficulty. Pain is resolved from preop walking. Review of Systems Review of Systems: CONSTITUTIONAL: Patient denies fevers, chills, sweats and weight changes. EYES: Patient denies any visual symptoms. EARS, NOSE, AND THROAT: No difficulties with hearing. No symptoms of rhinitis or sore throat. CARDIOVASCULAR: Patient denies chest pains, palpitations, orthopnea and paroxysmal nocturnal dyspnea. RESPIRATORY: No dyspnea on exertion, no wheezing or cough. GI: No nausea, vomiting, diarrhea, constipation, abdominal pain, hematochezia or melena. : No urinary hesitancy or dribbling. No nocturia or urinary frequency. No abnormal urethral discharge. MUSCULOSKELETAL: low back pain post procedure NEUROLOGIC: No chronic headaches, no seizures. Patient denies numbness, tingling or weakness. PSYCHIATRIC: Patient denies problems with mood disturbance. No problems with anxiety. ENDOCRINE: No excessive urination or excessive thirst. DERMATOLOGIC: Patient denies any rashes or skin changes. Physical Exam Physical Exam: Gen: A&O 3 NAD HEENT: NCAT, EOMI, not icteric. External ears normal. No rhinorrhea. Moist mucous membranes. Neck: Supple, full range of motion, no observable masses, No meningeal sign. Lungs: No Respiratory distress. CV: RRR, no edema. Abdomen: Soft, nondistended, No rebound tenderness. MSK: noted wound site and drain, maybe 10 cc of blood in drain Skin: No rashes, petechiae, lesions. Normal color per patient. Neuro: Normal Gait, Grossly intact. Psych: Appropriate for situation. Results & Data Results & Data Vital Signs (Past 12 Hours) Vital Signs Temp Pulse Resp BP BP Pulse Ox O2 Del Method 08/16/24 13:15 36.8 C 91 H 18 106/64 98/60 L 94 Room Air 08/16/24 11:53 37.3 C 88 20 105/67 92 Room Air 08/16/24 07:52 36.8 C 88 16 138/80 93 Room Air 08/16/24 03:19 36.8 C 80 16 165/101 H 162/93 H 96 Room Air Laboratory Results -personally reviewed, WBC of 15 likely reactive, Hgb slightly lower than baseline and creatinine stable (2) Sleep apnea Sleep apnea type: obstructive Qualified Code(s): G47.33 - Obstructive sleep apnea (adult) (pediatric) (3) Diabetes mellitus, type 2 Diabetes mellitus complication detail: with diabetic retinopathy Diabetes mellitus complication status: with ophthalmic complications Diabetes mellitus long term acute care registered nurse insulin use: with long term acute care registered nurse use Diabetes mellitus macular edema: macular edema presence unspecified Diabetic retinopathy severity: with unspecified retinopathy severity Laterality: unspecified laterality Qualified Code(s): E11.319 - Type 2 diabetes mellitus with unspecified diabetic retinopathy without macular edema; Z79.4 - retirement (current) use of insulin (4) CAD (coronary artery disease) Associated angina: without angina Coronary Disease-Associated Artery/Lesion type: [place] artery [place] vs. transplanted heart: [place] heart Qualified Code(s): I25.10 - Atherosclerotic heart disease of [place] coronary artery without angina pectoris (5) Hypertension Hypertension type: unspecified Qualified Code(s): I10 - Essential (primary) hypertension
[2024-08-17] MEDS: INSULIN ASPART PER UNIT CHARGE SC SCH (00:22)
[2024-08-17 06:40] LABS: Hematocrit (blood only) 33.3 % (42.0-52.0); Hemoglobin 11.3 g/dl (14.0-18.0); Mean Corpuscular Hgb Conc 33.9 g/dL (32.0-36.0); Mean Corpuscular Volume 85.6 fL (80.0-100.0); Mean Platelet Volume 10.5 fL (9.4-12.4); Platelet Count 201 K/uL (130-400); RDW Coefficient of Variation 13.2 % (11.5-14.5); Red Blood Count 3.89 M/uL (4.70-6.10); White Blood Count 15.65 K/ul (4.8-10.8)
[2024-08-17 06:43] LABS: BUN Creatinine Ratio 28.6 (10-20); Calcium 8.3 mg/dl (8.6-10.3); Creatinine Clr Calc Pharmacy 112.9 ml/min; Potassium 4.3 mmol/L (3.5-5.1)
--- NOTE | 2024-08-17 12:04 | Orthopedic Progress Note ---
Date of Service August 17, 2024 Assessment & Plan (1) Two-level lumbosacral spondylosis with radiculopathy: Plan: At this time we will continue physical therapy monitor his SHWETA operatively discharge home tomorrow. Admission and Anticipated Discharge Date Admission Date: August 15, 2024 Subjective Back pain controlled leg pain improved Physical Exam Physical Exam: Patient is currently in bed. He has been up and ambulating. Is good strength testing. Results & Data Vital Signs (Past 12 Hours) Vital Signs Temp Pulse Resp BP Pulse Ox O2 Del Method 08/17/24 07:08 36.4 C L 83 16 127/74 97 Room Air Queries Orthopedic Spine Obesity: Yes
--- NOTE | 2024-08-17 17:59 | Hospitalist Progress Note ---
Date of Service August 17, 2024 Assessment & Plan (1) Two-level lumbosacral spondylosis with radiculopathy: Plan: This is a 64 y/o male with CAD s/p stent x 2 with repeat procedure in 2022 for in-stent stenosis, prior ID, JHONY on CPAP, DM2 with retinopathy, HTN, dyslipidemia, and other history as outlined below who underwent L3-L5 decompression and fusion today by Dr. Higuera and for whom we have been consulted to assist with post-operative medical management. Currently, patient is stable and doing well post-operatively. EBL = 500 ml. Outpatient records from the [place] were reviewed to determine pt's medical history and pre-operative risk assessment. - Pain control, activity, DVT prophylaxis per primary team - monitor for post-op blood loss anemia - Encourage incentive spirometry, activity once okay with primary team -stable for discharge from medical perspective (2) Sleep apnea: Plan: Chronic, stable - pt brought CPAP from home Order placed for pt to use own CPAP machine at (3) Diabetes mellitus, type 2: Plan: Chronic, stable -slightly elevated today Plan: -Glycemic pharmacy consult noted and appreciated -Continue to monitor (4) CAD (coronary artery disease): Plan: -Chronic, stable without anginal symptoms at present -Continue home medications (5) Hypertension: Plan: -Chronic, stable -Continue home medications -Continue to monitor closely post-op Plan Feeding/fluids: carb consistent Analgesia: per ortho Sedation: na Thromboprophylaxis: per ortho Head up position: na Ulcer prophylaxis: na Glycemic control: insulin protocol Spontaneous breathing trial: na Bowel care: miralax prn Indwelling catheter removal: na Deescalation of antibiotics: na I spent a total of 35 minutes in direct patient care, including huyi-ph-wurc time with the patient and/or family, reviewing medical records, ordering and reviewing diagnostic tests, and coordinating care with other healthcare providers. This time includes: history taking, physical examination, medical decision making, counseling, ECG interpretation, imaging interpretation, lab interpretation, orders, and education, excluding time spent in the performance of separately billed services. Admission and Anticipated Discharge Date Admission Date: August 15, 2024 Subjective Patient seen and examined at bedside. Mr. Winn is doing well today. States he is going home tomorrow. States output is slowing down post procedure. Review of Systems Review of Systems: CONSTITUTIONAL: Patient denies fevers, chills, sweats and weight changes. EYES: Patient denies any visual symptoms. EARS, NOSE, AND THROAT: No difficulties with hearing. No symptoms of rhinitis or sore throat. CARDIOVASCULAR: Patient denies chest pains, palpitations, orthopnea and paroxysmal nocturnal dyspnea. RESPIRATORY: No dyspnea on exertion, no wheezing or cough. GI: No nausea, vomiting, diarrhea, constipation, abdominal pain, hematochezia or melena. : No urinary hesitancy or dribbling. No nocturia or urinary frequency. No abnormal urethral discharge. MUSCULOSKELETAL: low back pain post procedure NEUROLOGIC: No chronic headaches, no seizures. Patient denies numbness, tingling or weakness. PSYCHIATRIC: Patient denies problems with mood disturbance. No problems with anxiety. ENDOCRINE: No excessive urination or excessive thirst. DERMATOLOGIC: Patient denies any rashes or skin changes. Physical Exam Physical Exam: Gen: A&O 3 NAD HEENT: NCAT, EOMI, not icteric. External ears normal. No rhinorrhea. Moist mucous membranes. Neck: Supple, full range of motion, no observable masses, No meningeal sign. Lungs: No Respiratory distress. CV: RRR, no edema. Abdomen: Soft, nondistended, No rebound tenderness. MSK: noted wound site and drain Skin: No rashes, petechiae, lesions. Normal color per patient. Neuro: Normal Gait, Grossly intact. Psych: Appropriate for situation. Results & Data Results & Data Vital Signs (Past 12 Hours) Vital Signs Temp Pulse Resp BP Pulse Ox O2 Del Method 08/17/24 14:51 36.7 C 83 17 132/80 96 Room Air 08/17/24 07:08 36.4 C L 83 16 127/74 97 Room Air Laboratory Results -personally reviewed, stable leukocytosis, slight downtrend in Hgb post op Medications Administered Aspirin (Aspirin 81 Mg Ectab) 81 mg PO [facility] Stop: 09/15/24 08:59 Last Admin: 08/17/24 08:34 Dose: 81 mg Documented By: SRINIVASA Co-signed By: GUICHO Admin: 08/16/24 08:30 Dose: 81 mg Documented By: GUICHO Carvedilol (Carvedilol 25 Mg Tab) 25 mg PO BIDM [facility] Stop: 09/14/24 16:59 Last Admin: 08/17/24 17:30 Dose: 25 mg Documented By: SRINIVASA Co-signed By: GUICHO Admin: 08/17/24 08:32 Dose: 25 mg Documented By: SRINIVASA Co-signed By: GUICHO Admin: 08/16/24 17:15 Dose: 25 mg Documented By: Admin: 08/16/24 08:30 Dose: 25 mg Documented By: Admin: 08/15/24 16:35 Dose: 25 mg Documented By: GUICHO Duloxetine HCl (Duloxetine Hcl 60 Mg Cap) 60 mg PO QAM RONY Stop: 09/15/24 08:59 Last Admin: 08/17/24 08:33 Dose: 60 mg Documented By: SRINIVASA Co-signed By: GUICHO Admin: 08/16/24 08:30 Dose: 60 mg Documented By: GUICHO Hydromorphone HCl (Hydromorphone Inj 0.5 Mg/0.5 Ml Syr) 0.5 mg IV Q3H PRN PRN Reason: MODERATE Pain (Scale 4,5,6) & Pre PT Stop: 08/29/24 13:13 Last Admin: 08/15/24 16:32 Dose: 0.5 mg Documented By: GUICHO Dexamethasone 6 mg/ Syringe 1.5 mls @ 1 mls/min IV DAILY RONY Stop: 08/18/24 09:02 Last Admin: 08/17/24 08:33 Dose: 1 mls/min Documented By: SRINIVASA Co-signed By: GUICHO Admin: 08/16/24 08:29 Dose: 1 mls/min Documented By: GUICHO Insulin Aspart (Insulin Aspart Per Unit Charge) 0 units SC ACHS RONY Stop: 09/14/24 16:29 Last Admin: 08/17/24 17:35 Dose: 24 units Documented By: SRINIVASA Co-signed By: GUICHO Admin: 08/17/24 12:41 Dose: 22 units Documented By: SRINIVASA Co-signed By: GUICHO Admin: 08/17/24 08:34 Dose: 19 units Documented By: SRINIVASA Co-signed By: GUICHO Admin: 08/16/24 20:54 Dose: 12 units Documented By: ALEN Co-signed By: VENTURA Admin: 08/16/24 17:14 Dose: 38 units Documented By: GUICHO Co-signed By: MARCIA Admin: 08/16/24 11:58 Dose: 32 units Documented By: GUICHO Co-signed By: HOANG Admin: 08/16/24 08:29 Dose: 21 units Documented By: GUICHO Co-signed By: [facility] [place] [facility] Admin: 08/15/24 20:54 Dose: 8 units Documented By: MARYAN Co-signed By: DEYANIRA Admin: 08/15/24 17:00 Dose: 20 units Documented By: GUICHO Co-signed By: MARCIA Insulin Glargine (Lantus Per Unit Charge) [facility] [place]: 09/15/24 08:59 Last Admin: 08/17/24 08:35 Dose: 50 units Documented By: SRINIVASA Co-signed By: GUICHO Admin: 08/16/24 08:29 Dose: 50 units Documented By: GUICHO Co-signed By: MARCIA Isosorbide Mononitrate (Isosorbide [place] Extended Rel 60 Mg Tabcr) 60 mg PO [facility] Stop: 09/15/24 08:59 Last Admin: 08/17/24 08:33 Dose: 60 mg Documented By: SRINIVASA Co-signed By: GUICHO Admin: 08/16/24 08:30 Dose: 60 mg Documented By: GUICHO Lisinopril (Lisinopril 40 Mg Tab) 40 mg PO [facility] Stop: 09/15/24 08:59 Last Admin: 08/17/24 08:34 Dose: 40 mg Documented By: SRINIVASA Co-signed By: GUICHO Admin: 08/16/24 08:30 Dose: 40 mg Documented By: GUICHO Miscellaneous ( Floseal Hemostatic Matrix 10ml) 30 ml TOP ONCE [facility] Stop: 09/14/24 10:29 Last Admin: 08/15/24 11:31 Dose: 20 ml Documented By: GMB Oxycodone HCl (Oxycodone Hcl Ir 5 Mg Tab (Immediate Release)) 5 - 10 mg PO Q4H PRN PRN Reason: Pain & Pre PT Stop: 08/29/24 13:13 Last Admin: 08/17/24 17:36 Dose: 10 mg Documented By: SRINIVASA Co-signed By: GUICHO Admin: 08/17/24 12:41 Dose: 5 mg Documented By: SRINIVASA Co-signed By: GUICHO Admin: 08/17/24 06:05 Dose: 10 mg Documented By: Admin: 08/16/24 20:56 Dose: 10 mg Documented By: Admin: 08/16/24 10:20 Dose: 10 mg Documented By: Admin: 08/16/24 05:29 Dose: 10 mg Documented By: Admin: 08/15/24 19:46 Dose: 10 mg Documented By: Admin: 08/15/24 14:15 Dose: 10 mg Documented By: GUICHO Polyethylene Glycol (Polyethylene (Miralax) 17 Gm Pack) 17 gm PO Q6 RONY Stop: 09/15/24 05:59 Last Admin: 08/17/24 17:34 Dose: 17 gm Documented By: SRINIVASA Co-signed By: GUICHO Admin: 08/17/24 12:41 Dose: 17 gm Documented By: SRINIVASA Co-signed By: GUICHO Admin: 08/17/24 06:06 Dose: 17 gm Documented By: Admin: 08/17/24 00:23 Dose: Not Given Documented By: Admin: 08/16/24 17:18 Dose: 17 gm Documented By: Admin: 08/16/24 11:55 Dose: 17 gm Documented By: Admin: 08/16/24 05:28 Dose: 17 gm Documented By: MARYAN Rosuvastatin Calcium (Rosuvastatin Calcium 20 Mg Tab) 20 mg PO HS RONY Stop: 09/14/24 20:59 Last Admin: 08/16/24 20:55 Dose: 20 mg Documented By: Admin: 08/15/24 20:56 Dose: 20 mg Documented By: MARYAN Senna/Docusate Sodium (Docusate Sodium/Senna 50/8.6mg Tab) 2 tab PO HS RONY Stop: 09/14/24 20:59 Last Admin: 08/16/24 20:55 Dose: 2 tab Documented By: Admin: 08/15/24 20:54 Dose: 2 tab Documented By: MARYAN (2) Sleep apnea Sleep apnea type: obstructive Qualified Code(s): G47.33 - Obstructive sleep apnea (adult) (pediatric) (3) Diabetes mellitus, type 2 Diabetes mellitus mcfp insulin use: with terminal operations manager use Diabetes mellitus complication status: with ophthalmic complications Diabetes mellitus complication detail: with diabetic retinopathy Diabetic retinopathy severity: with unspecified retinopathy severity Diabetes mellitus macular edema: macular edema presence unspecified Laterality: unspecified laterality Qualified Code(s): E11.319 - Type 2 diabetes mellitus with unspecified diabetic retinopat hy without macular edema; Z79.4 - prison (current) use of insulin (4) CAD (coronary artery disease) Coronary Disease-Associated Artery/Lesion type: [place] artery [place] vs. transplanted heart: [place] heart Associated angina: without angina Qualified Code(s): I25.10 - Atherosclerotic heart disease of [place] coronary artery without angina pectoris (5) Hypertension Hypertension type: unspecified Qualified Code(s): I10 - Essential (primary) hypertension
[2024-08-18] MEDS: CYCLOBENZAPRINE HCL 10 MG TAB PO PRN (06:27)
[2024-08-18 06:37] LABS: Hematocrit (blood only) 33.5 % (42.0-52.0); Hemoglobin 11.1 g/dl (14.0-18.0); Mean Corpuscular Hemoglobin 28.4 pg (25.0-34.0); Mean Corpuscular Hgb Conc 33.1 g/dL (32.0-36.0); Mean Corpuscular Volume 85.7 fL (80.0-100.0); Mean Platelet Volume 10.3 fL (9.4-12.4); Platelet Count 208 K/uL (130-400); RDW Coefficient of Variation 13.2 % (11.5-14.5); RDW Standard Deviation 41.2 fL (36.4-46.3); Red Blood Count 3.91 M/uL (4.70-6.10); White Blood Count 15.39 K/ul (4.8-10.8)
[2024-08-18 06:53] LABS: BUN Creatinine Ratio 27.3 (10-20); Calcium 8.3 mg/dl (8.6-10.3); Creatinine Clr Calc Pharmacy 131.8 ml/min; Potassium 4.4 mmol/L (3.5-5.1)
[2024-08-18 07:18] VITALS: BP 155/87; PULSE 82; RESP 16; TEMP 97.9; O2SAT 94
[2024-08-18] MEDS ORDERED: LANTUS PER UNIT CHARGE SC ONE (09:00)
[2024-08-18] MEDS ORDERED: LANTUS PER UNIT CHARGE SC SCH (09:00)
[2024-08-18] MEDS: LANTUS PER UNIT CHARGE SC ONE (09:17)
--- NOTE | 2024-08-18 10:02 | Discharge Summary ---
Date of Service August 18, 2024 Admission HPI Per Admitting Provider This is a 64-year-old male who presents chronic persistent back and leg pain Course of nonoperative care is here for surgical invention. Principal Diagnosis Lumbar spondylosis with radiculopathy Discharge Data Allergies Allergy/AdvReac Type Severity Reaction Status Date / Time amlodipine Allergy Severe Facial Verified 08/15/24 08:14 Swelling niacin AdvReac Severe Redness, Verified 08/15/24 08:14 Flushing pregabalin AdvReac Severe Nightmares Verified 08/15/24 08:14 metformin AdvReac Intermediate Diarrhea Verified 08/15/24 08:14 Tkygfkc-[id number]-GfR Reductase AdvReac Intermediate Muscle Pain Verified 08/15/24 08:14 Inhibitor Consultations 08/15/24 13:14 Consult Hospitalist Routine Procedures Performed Operation Date: 08/15/24 09:15 Actual Procedures p L3-L4, L4-L5 Decompression and Fusion, Spinal Cord Monitoring(Not Applicable) - Dylon Higuera DO Ordered Studies 08/15/24 09:15 FL lumbar spine 2-3V Routine Hospital Course (1) Two-level lumbosacral spondylosis with radiculopathy: Patient went lumbar decompression patient tolerated this well was taken to orthopedic for postoperative postop he progressed appropriately. Marked improvement of his leg pain. SHWETA drain decreasing. Extra strength testing. Simply discharged home. Discharge orders instructions from the chart for further review. Total Time Total Time Spent Total Time Spent (In Minutes): 20 minutes Discharge Plan Discharge Items Patient Disposition: Home - Self-Care Reason For Visit: Lumbosacral Spondylosis with Radiculopathy, Spondy Discharge Diagnosis: Lumbar spondylosis with radiculopathy Activity: As commented below Non-emergency contact: Primary Care Provider Call non-emergency contact if: you have any medication questions Follow-up/Referrals: [facility] [Primary Care Provider] - Diet: Regular Addtl Attending Provider Instructions: ACTIVITY RECOMMENDATIONS: SELF CARE INSTRUCTIONS AFTER THORACIC/LUMBAR FUSIONS 1. You may walk to your tolerance. It is good exercise for your legs and back. Expect some back and intermittent leg aches and pains. 2. You may perform "counter-top" level activities (make a sandwich, simon with a project, etc.). 3. No bending or lifting of more than 10 pounds or back twisting of any nature (roll like a log when turning in bed). 4. You may ride in a car for 20-30 minutes at a time. No driving until after your first visit with your doctor. 5. Frequent changes of position and restricting sitting to 30 minutes at a time will help limit the amount of back spasms and stiffness you may experience. 6. You may discontinue the use of ambulatory aids (cane, crutches, etc.) once your strength and confidence allow. 7. You may product line manager the shower and let water strike your incision when you arrive home at least once daily. Do not take a tub bath, sit in a hot tub or go into a swimming pool until after your first recheck in the office. 8. You may resume previous diet. SPECIAL CARE INSTRUCTIONS: VERY IMPORTANT TO READ AND REVIEW A. Your surgical incision has been closed with a cosmetic suture under the skin that will dissolve in about 6 weeks. In 14 days, you can use a pair of clean scissors and cut the suture that is left outside of the skin at the ends of your incision. 1. The small skin tapes can be removed 7 days after surgery if they have not fallen off by that point. 2. You may keep the wound open to air as much as possible to promote healing after post-op day number 5 unless told otherwise by your doctor. 3. If you think the wound looks like it is becoming infected (redness or worsening drainage) and/or you are experiencing fever, chill or worsening back pain and muscle spasms, contact the office so that we may evaluate you as soon as possible. B. Complications are uncommon, but please contact us if you have any signs or symptoms of: 1. wound infection (fever higher than 102.5 degrees F, redness, separation of wound, drainage, or increasing pain from the incision) 2. blood clots in legs (pain, swelling, redness and warmth in legs) 3. urinary tract infection (fever higher than 102.5 degrees F, burning upon urination or increased frequency of urination) 4. nerve problems (inability to walk on your toes or heels, numbness, loss of bowel or bladder control) 5. any other symptoms that concern you C. Please call the office at if you have any concerns or questions about your operation or recovery. D. No smoking! Smoking drastically decreases the chance of a solid fusion. E. Do not take any anti-inflammatory medications (Indocin, Advil, Motrin, Aspirin, Naprosyn, etc.) as these may inhibit the chance of a solid fusion. Tylenol is okay to take for pain. MANAGING PAIN AFTER SPINAL SURGERY 1. Narcotic medication is intended for short-term use and will be provided for surgical pain. Surgical pain usually lasts for a period of 4-6 weeks. Narcotic medication includes Percocet, Vicodin, Darvocet, Tylenol #3 or Lortab. 2. Longer-term pain is more appropriately treated with non-narcotic medication such as Tylenol ES. 3. Muscle spasm is not appropriately treated with narcotics. Muscle relaxers such as Soma, Flexeril or Skelaxin can be used along with Tylenol ES. 4. Remember that we all live with some "aches and pains". This is not unusual or uncommon after an injury or as we get older. a. Back pain is expected and may include muscle spasms for 4 to 6 weeks after surgery. The pain should gradually improve. If the pain worsens for no apparent reason, please contact the office. b. Intermittent leg pain may also be experienced and should not be concerned about unless it worsens for no apparent reason. If so, please contact the office. 5. We will provide appropriate medication within the normal guidelines of their prescribed use. We will also be very cautious and aware of potential abuse and extended duration of patients' medication needs. a. Pain medications are for your comfort and to assist with sleep and rest so that the tissue can heal. They are not provided in order to return to normal activity and should not be used through the day. To do so or worsening pain at night can result from ongoing tissue damage and development of tolerance to the prescribed medicine. 6. Please allow 2-3 days to process refills. Prescriptions will not be mailed but must be picked up at the office. FOLLOW UP VISIT: Keep your scheduled follow-up appointment. Any questions, please call the office at . Pending Studies at Discharge: No Stand-Alone Forms: My [employer], Smoking Cessation Medications and DC Order Prescriptions: New tramadol 50 mg tablet 50 mg PO Q6H PRN (Reason: pain, moderate) Qty: 30 0RF oxycodone 5 mg tablet 5 mg PO Q6H PRN (Reason: pain) Qty: 30 0RF Continued celecoxib 200 mg Capsule 200 mg PO DAILY PRN (Reason: Pain) cyclobenzaprine 10 mg Tablet 10 mg PO BID PRN (Reason: Muscle Pain) carvedilol 25 mg Tablet 25 mg PO BID Rx Instructions: must administer with a meal/food sennosides [Senokot] 8.6 mg Tablet 8.6 mg PO HS hydrocodone-acetaminophen 5-325 mg Tablet 1 tab PO TID PRN (Reason: Pain) aspirin 81 mg Tablet,Delayed Release (Dr/Ec) 81 mg PO QAM isosorbide mononitrate 60 mg Tablet Extended Release 24 Hr 60 mg PO QAM lidocaine 5 % Adhesive Patch,Medicated 1 patch TOPICAL QAM Rx Instructions: leave on most painful area for up to 12 hrs lisinopril 40 mg Tablet 40 mg PO QAM Methylten 10 % Cream 1 applic TOPICAL DAILY PRN (Reason: Pain) insulin aspart U-100 [Novolog FlexPen U-100 Insulin] 100 unit/mL (3 mL) Insulin Pen 12 unit SUBCUT TID rosuvastatin 40 mg Tablet 20 mg PO HS Patient Comments: "This is only one I have been able to take of the statins" duloxetine [Cymbalta] 60 mg Capsule,Delayed Release(Dr/Ec) 60 mg PO QAM insulin glargine [Lantus Solostar U-100 Insulin] 100 unit/mL (3 mL) Insulin Pen 40 unit SUBCUT QAM diclofenac sodium 1 % Gel 2 g TOPICAL DAILY PRN (Reason: Muscle Pain) Ozempic 2 mg/dose (8 mg/3 mL) Pen Injector 2 mg SUBCUT WK Rx Instructions: Thursday Discharge Orders: Discharge Order (Routine); Ordered 08/18/24 Ordered By: Dylon Higuera Admission Data Admit Date/Time: 08/15/24 11:47 Attending Provider: Dylon Higuera Admit Provider: Dylon Higuera Primary Care Provider: [facility] Other Providers: Josh Grande
--- NOTE | 2024-08-18 20:16 | Hospitalist Progress Note ---
Date of Service August 18, 2024 Assessment & Plan (1) Two-level lumbosacral spondylosis with radiculopathy: Plan: This is a 64 y/o male with CAD s/p stent x 2 with repeat procedure in 2022 for in-stent stenosis, prior ID, JHONY on CPAP, DM2 with retinopathy, HTN, dyslipidemia, and other history as outlined below who underwent L3-L5 decompression and fusion today by Dr. Higuera and for whom we have been consulted to assist with post-operative medical management. Currently, patient is stable and doing well post-operatively. EBL = 500 ml. Outpatient records from the [place] were reviewed to determine pt's medical history and pre-operative risk assessment. - Pain control, activity, DVT prophylaxis per primary team - monitor for post-op blood loss anemia - Encourage incentive spirometry, activity once okay with primary team -stable for discharge from medical perspective (2) Sleep apnea: Plan: Chronic, stable - pt brought CPAP from home Order placed for pt to use own CPAP machine at (3) Diabetes mellitus, type 2: Plan: Chronic, stable -slightly elevated today Plan: -Glycemic pharmacy consult noted and appreciated -Continue to monitor (4) CAD (coronary artery disease): Plan: -Chronic, stable without anginal symptoms at present -Continue home medications (5) Hypertension: Plan: -Chronic, stable -Continue home medications -Continue to monitor closely post-op Plan Feeding/fluids: carb consistent Analgesia: per ortho Sedation: na Thromboprophylaxis: per ortho Head up position: na Ulcer prophylaxis: na Glycemic control: insulin protocol Spontaneous breathing trial: na Bowel care: miralax prn Indwelling catheter removal: na Deescalation of antibiotics: na I spent a total of 35 minutes in direct patient care, including [id number]-fg-hwiv time with the patient and/or family, reviewing medical records, ordering and reviewing diagnostic tests, and coordinating care with other healthcare providers. This time includes: history taking, physical examination, medical decision making, counseling, ECG interpretation, imaging interpretation, lab interpretation, orders, and education, excluding time spent in the performance of separately billed services. Admission and Anticipated Discharge Date Admission Date: August 15, 2024 Subjective Patient seen and examined at bedside. Patient continues to do well and is looking forward to going home. Review of Systems Review of Systems: CONSTITUTIONAL: Patient denies fevers, chills, sweats and weight changes. EYES: Patient denies any visual symptoms. EARS, NOSE, AND THROAT: No difficulties with hearing. No symptoms of rhinitis or sore throat. CARDIOVASCULAR: Patient denies chest pains, palpitations, orthopnea and paroxysmal nocturnal dyspnea. RESPIRATORY: No dyspnea on exertion, no wheezing or cough. GI: No nausea, vomiting, diarrhea, constipation, abdominal pain, hematochezia or melena. : No urinary hesitancy or dribbling. No nocturia or urinary frequency. No abnormal urethral discharge. MUSCULOSKELETAL: low back pain post procedure NEUROLOGIC: No chronic headaches, no seizures. Patient denies numbness, tingling or weakness. PSYCHIATRIC: Patient denies problems with mood disturbance. No problems with anxiety. ENDOCRINE: No excessive urination or excessive thirst. DERMATOLOGIC: Patient denies any rashes or skin changes. Physical Exam Physical Exam: Gen: A&O 3 NAD HEENT: NCAT, EOMI, not icteric. External ears normal. No rhinorrhea. Moist mucous membranes. Neck: Supple, full range of motion, no observable masses, No meningeal sign. Lungs: No Respiratory distress. CV: RRR, no edema. Abdomen: Soft, nondistended, No rebound tenderness. MSK: noted wound site and drain Skin: No rashes, petechiae, lesions. Normal color per patient. Neuro: Normal Gait, Grossly intact. Psych: Appropriate for situation. Results & Data Results & Data Laboratory Results -personally reviewed, Hgb levels relatively stable along with reactive le ukocytosis (2) Sleep apnea Sleep apnea type: obstructive Qualified Code(s): G47.33 - Obstructive sleep apnea (adult) (pediatric) (3) Diabetes mellitus, type 2 Diabetes mellitus skilled nursing insulin use: with skilled nursing use Diabetes mellitus complication status: with ophthalmic complications Diabetes mellitus complication detail: with diabetic retinopathy Diabetic retinopathy severity: with unspecified retinopathy severity Diabetes mellitus macular edema: macular edema presence unspecified Laterality: unspecified laterality Qualified Code(s): E11.319 - Type 2 diabetes mellitus with unspecified diabetic retinopathy without macular edema; Z79.4 - dedicated intermodal truck driver (current) use of insulin (4) CAD (coronary artery disease) Coronary Disease-Associated Artery/Lesion type: [place] artery [place] vs. tra nsplanted heart: [place] heart Associated angina: without angina Qualified Code(s): I25.10 - Atherosclerotic heart disease of [place] coronary artery without angina pectoris (5) Hypertension Hypertension type: unspecified Qualified Code(s): I10 - Essential (primary) hypertension
[2024-08-19] MEDS ORDERED: LANTUS PER UNIT CHARGE SC SCH (09:00)
== END 2024-08-18 11:50 | disposition home or self-care (01) | DRG 428 ==
LOC: ASU 07:33 → 3E 11:47